=== PATIENT | male | born 1995 | race African-American/Black ===

== ENCOUNTER 2016-07-20 15:36 | Emergency (ER) | payer MEDICAID ==
[~2016-07-20] VITALS: Ht 175.3 cm; Wt 78.0 kg
[2016-07-20] MEDS ORDERED: AMOX-424 PO (15:53)
[2016-07-20] MEDS ORDERED: KETOROLAC 60MG/2ML VIAL IM ONE (18:30)
[2016-07-20] MEDS ORDERED: PENICILLIN G BENZATHINE 1,200,000 UNITS/2ML SYR IM ONE (18:30)
[2016-07-20] MEDS ORDERED: DEXAMETHASONE 10MG/ML 1ML VIAL IM ONE (18:30)
[2016-07-20 18:49] VITALS: BP 114/75
== END 2016-07-20 20:15 | disposition home or self-care (01) ==
LOC: ER 15:37
DX: J02.0 Streptococcal pharyngitis (principal); J45.909 Unspecified asthma, uncomplicated; Z87.898 Personal history of other specified conditions
CPT/HCPCS: 70360; 96372; 99284; J0561; J1100; J1885

== ENCOUNTER 2016-07-23 11:05 | Emergency (ER) | payer MEDICAID ==
[~2016-07-23] VITALS: Ht 175.3 cm; Wt 73.0 kg
[~2016-07-23 11:05] MED LIST: AMOX-424 PO
[2016-07-23] MEDS ORDERED: SODIUM CHLORIDE 0.9% 1000ML BAG (SEPSIS BOLUS) IV ONE (18:00)
[2016-07-23] MEDS ORDERED: MORPHINE SULFATE 4 MG/ML CPJ (NOT FOR IM USE) IV ONE (18:00)
[2016-07-23] MEDS ORDERED: METHYLPREDNISOLONE SOD SUCC 125 MG/2 ML VIAL IV ONE (18:00)
[2016-07-23 21:00] VITALS: BP 127/78
== END 2016-07-23 21:05 | disposition home or self-care (01) ==
LOC: ER 12:15
DX: J02.9 Acute pharyngitis, unspecified (principal); J45.909 Unspecified asthma, uncomplicated
CPT/HCPCS: 96361; 96374; 96375; 99285; J2270; J2930; J7030; Z7610

== ENCOUNTER 2016-11-01 17:54 | Emergency (ER) | payer MEDICAID ==
[~2016-11-01] VITALS: Ht 180.3 cm; Wt 76.0 kg
[2016-11-01 20:00] VITALS: BP 115/77
== END 2016-11-01 21:10 | disposition home or self-care (01) ==
LOC: ER 20:45
DX: J02.9 Acute pharyngitis, unspecified (principal); J45.909 Unspecified asthma, uncomplicated
CPT/HCPCS: 99283